=== PATIENT | female | born 1970 | race Hispanic/Latino ===

== ENCOUNTER 2017-06-19 13:58 | Emergency (ER) | payer MEDICAID ==
[2017-06-19 14:05] VITALS: BP 122/73
--- NOTE | 2017-06-19 15:20 | Emergency Department Report ---
ED Rash HPI - HPI Chief Complaint: Skin Rash Stated Complaint: ITCHING FOR OVER A MONTH Time Seen by Provider: 06/19/17 14:47 Duration: 1 month Location: Head, Neck, Chest, Back, Upper Extremities, Lower Extremities Rash Symptoms: Yes Itching, No Facial Swelling, No Tongue/Oral Swelling, No Breathing Difficulties, No Choking Sensation, No Wheezing/Dyspnea, No Peeling, No Blistering, No Fever, No Lightheaded, No Malaise, No Myalgias Severity: moderate Other History: 47-year-old female past medical history multiple surgeries presents with complaint of itchy rash on extremities chest back and neck for over 1 month. Patient states she has itchy rash with slightly reddish lesions in a slightly linear pattern on her extremities upper neck and back. 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 Denies fever chills nausea or vomiting. ED Review of Systems ROS: Stated complaint: ITCHING FOR OVER A MONTH Other details as noted in HPI Constitutional: denies: chills, fever Eyes: denies: eye pain, eye discharge, vision change ENT: denies: ear pain, throat pain Respiratory: denies: cough, shortness of breath, wheezing Cardiovascular: denies: chest pain, palpitations Endocrine: no symptoms reported Gastrointestinal: denies: abdominal pain, nausea, diarrhea Genitourinary: denies: urgency, dysuria, discharge Musculoskeletal: denies: back pain, joint swelling, arthralgia Skin: as per HPI, rash, pruritus. denies: lesions Neurological: denies: headache, weakness, paresthesias Psychiatric: denies: anxiety, depression Hematological/Lymphatic: denies: easy bleeding, easy bruising ED Past Medical Hx - Past Medical History Previous Medical History?: Yes Additional medical history: abdominal pain - Surgical History Past Surgical History?: Yes Hx Cholecystectomy: Yes Additional Surgical History: States over 25 surgeries. Galo abdominal surgeries. Small bowel obstruction 2, 2, hysterectomy, cholecystectomy - Social History Smoking Status: Current Every Day Smoker Substance Use Type: Alcohol - Medications Home Medications: Home Medications Medication Instructions Recorded Confirmed Last Taken Type Ondansetron [Zofran Odt] 4 mg PO Q4H PRN #14 tab.rapdis 08/10/15 Unknown Rx traMADol [Ultram 50 MG tab] 50 mg PO Q6HR PRN #14 tablet 08/10/15 Unknown Rx Diphenhydramine HCl/Zinc Acet 1 applicatio TP BID PRN #1 06/19/17 Unknown Rx [Benadryl Itch Stopping Crm] cream..g. Hydrocortisone 1 applicatio TP BID PRN #1 06/19/17 Unknown Rx cream..g. Permethrin 5% [Acticin 5% CREAM] 1 applicatio TP ONCE #1 tube 06/19/17 Unknown Rx Rash Exam - Exam General: Vital signs noted. No distress. Alert and acting appropriately. HEENT: No Periorbital Edema, No Conjuctival Injection, No Chemosis, No Perioral Edema, No Tongue Edema, No Uvular Edema, No Compromised Airway, No Drooling Lungs: Yes Good Air Exchange (Normal Breath Sounds), No Wheezes, No Ronchi, No Stridor, No Cough, No Labored Respirations, No Retractions, No Use of Accessory Muscles, No Other Abnormal Lung Sounds Heart: Yes Regular, No Murmur Skin: Yes Urticarial Rash, Yes Excoriations, No Maculopapular Rash, No Morbilliform rash, No Bulla(e), No Weeping, No Tenderness, No Erythema, No Edema , No Encrustations, No Other Other: Positive: Abdomen Normal, Neurologic Normal, Musculoskeletal Normal ED Course Vital Signs 06/19/17 14:02 Temperature 97.5 F L Pulse Rate 79 Respiratory 18 Rate Blood Pressure 122/73 O2 Sat by Pulse 97 Oximetry ED Medical Decision Making - Medical Decision Making A/P: Scabies rash 1-empiric treatment with permethrin 2-hydrocortisone and Benadryl cream topical when necessary 3-follow-up with primary care doctor Critical care attestation.: If time is entered above; I have spent that time in minutes in the direct care of this critically ill patient, excluding procedure time. ED Disposition Clinical Impression: Scabies, Rash Disposition: DC-01 TO HOME OR SELFCARE Is pt being admited?: No Does the pt Need Aspirin: No Condition: Stable Instructions: Scabies (ED), Acute Rash (ED), Itchy Skin (ED) Prescriptions: Diphenhydramine HCl/Zinc Acet [Benadryl Itch Stopping Crm] 1 applicatio TP BID PRN #1 cream..g. PRN Reason: Itching Hydrocortisone 1 applicatio TP BID PRN #1 cream..g. PRN Reason: Itching Permethrin 5% [Acticin 5% CREAM] 1 applicatio TP ONCE #1 tube Referrals: [facility] [Provider Group] - 3-5 Days [facility] [place] [Outside] - 3-5 Days Forms: Accompanied Note Time of Disposition: 15:19
== END 2017-06-19 15:35 | disposition home or self-care (01) ==
LOC: ED 13:58
DX: B86 Scabies (principal)
CPT/HCPCS: 99282

== ENCOUNTER 2018-09-05 17:43 | Emergency (ER) | payer MEDICAID ==
[2018-09-05 17:50] VITALS: BP 124/55
--- NOTE | 2018-09-05 17:50 | Emergency Department Report ---
Blank Doc - Documentation Documentation: trying to lift a calderón size mattress and sudden severe pain to lower back
[2018-09-05] MEDS ORDERED: PERCOCET 5/325 PO STA (17:51)
--- NOTE | 2018-09-05 20:27 | XRay Report ---
PROCEDURE: XR SPINE LUMBOSACRAL 2-3V TECHNIQUE: PROCEDURE: XR SPINE LUMBOSACRAL 2-3V HISTORY: lower back pain after lifting mattress COMPARISONS: None . FINDINGS: Alignment: Normal . Vertebral body heights/Disk spaces: Normal . Fracture(s): None . Facets: Normal . Bone mineralization: Normal . IMPRESSION: Normal Examination . This document is electronically signed by Neal Mcdaniels MD., September 05 2018 08:24:41 PM ET
[2018-09-05] MEDS ORDERED: TORADOL IM ONE (20:55)
[2018-09-05] MEDS ORDERED: DELTASONE PO ONE (20:56)
--- NOTE | 2018-09-05 21:19 | Emergency Department Report ---
HPI - General Chief Complaint: Back Pain/Injury Time Seen by Provider: 09/05/18 17:49 - HPI HPI: This is a 48-year-old female with no prior medical history who presents to ED complaining of lower back pain started today. Patient states she was lifting a a calderón size mattress. She accidentally strained her back. Patient states pain started shortly after lifting the clinic size mattress. She denies any fall or trauma to the back. ED Past Medical Hx - Past Medical History Previous Medical History?: No Additional medical history: abdominal pain - Surgical History Hx Cholecystectomy: Yes Additional Surgical History: States over 25 surgeries. Galo abdominal surgeries. Small bowel obstruction 2, 2, hysterectomy - Social History Smoking Status: Former Smoker Substance Use Type: None - Medications Home Medications: Home Medications Medication Instructions Recorded Confirmed Last Taken Type Ondansetron [Zofran Odt] 4 mg PO Q4H PRN #14 tab.rapdis 08/10/15 Unknown Rx Diphenhydramine HCl/Zinc Acet 1 applicatio TP BID PRN #1 06/19/17 Unknown Rx [Benadryl Itch Stopping Crm] cream..g. Hydrocortisone 1 applicatio TP BID PRN #1 06/19/17 Unknown Rx cream..g. Permethrin 5% [Acticin 5% CREAM] 1 applicatio TP ONCE #1 tube 06/19/17 Unknown Rx traMADol [Ultram 50 MG tab] 50 mg PO Q6HR PRN #12 tablet 05/12/18 Unknown Rx Ibuprofen [Motrin] 800 mg PO Q8HR #30 tablet 09/05/18 Unknown Rx traMADol [Ultram 50 MG tab] 50 mg PO Q6HR PRN #14 tablet 09/05/18 Unknown Rx ED Review of Systems ROS: Stated complaint: BACK PAIN Other details as noted in HPI Comment: All other systems reviewed and negative Physical Exam - Physical Exam Vital Signs: Vital Signs 09/05/18 09/05/18 09/05/18 17:46 17:47 19:20 Temperature 98.1 F Pulse Rate 87 Respiratory 18 16 Rate Blood Pressure 124/55 O2 Sat by Pulse 95 Oximetry 09/05/18 20:20 Temperature Pulse Rate Respiratory 16 Rate Blood Pressure O2 Sat by Pulse Oximetry Physical Exam: GENERAL: Alert and oriented x3, no apparent distress, Normal Gait, atraumatic. HEAD: Head is normocephalic and a-traumatic. BACK: Full range of motion, no spinal tenderness, tender to palpation of the latissimus dorsi muscles.. EXTREMITIES/MUSCULOSKELETAL: No cyanosis, clubbing, rash, lesions or edema. Full ROM bilaterally. LE Pulses 2+ bilaterally. LE 5+ strength bilaterally NEUROLOGIC: The patient is cooperative with no focal neurologic deficits. Cranial nerves II through XII are grossly intact. Normal speech. Normal sensation in bilateral upper and lower extremities, No loss of sensation, SKIN: Warm and dry, No lesions, No ulceration or induration present. ED Course Vital Signs 09/05/18 09/05/18 09/05/18 17:46 17:47 19:20 Temperature 98.1 F Pulse Rate 87 Respiratory 18 16 Rate Blood Pressure 124/55 O2 Sat by Pulse 95 Oximetry 09/05/18 20:20 Temperature Pulse Rate Respiratory 16 Rate Blood Pressure O2 Sat by Pulse Oximetry ED Medical Decision Making - Medical Decision Making 48-year-old female presents to ED with low back muscle strain ED course: Patient received Toradol and 1 tablet of Percocet in ED. Vital signs are normal patient is in no acute distress X-ray shows no abnormal findings, see report above. Discussed findings with the patient. Discussed with patient follow-up with primary care physician. Discussed the patient and take medications as prescribed. Patient has no neurological deficit. Patient is alert and oriented 3 and understands all instructions given. Critical care attestation.: If time is entered above; I have spent that time in minutes in the direct care of this critically ill patient, excluding procedure time. ED Disposition Clinical Impression: Strain of muscle, fascia and tendon of lower back, initial encounter Disposition: - TO HOME OR SELFCARE Is pt being admited?: No Does the pt Need Aspirin: No Condition: Stable Instructions: Muscle Strain (ED), Low Back Strain (ED), Heat Pack Application (ED) Additional Instructions: Make sure to follow up with the primary care physician as discussed. Take all your medications as you've been prescribed. If you have any worsening symptoms or develop new symptoms please return to ED immediately. Prescriptions: Ibuprofen [Motrin] 800 mg PO Q8HR #30 tablet traMADol [Ultram 50 MG tab] 50 mg PO Q6HR PRN #14 tablet PRN Reason: Pain Referrals: [facility] MD AYLIN [Primary Care Provider] - 3-5 Days Forms: Work/School Release Form(ED) Time of Disposition: 21:46
== END 2018-09-05 21:56 | disposition home or self-care (01) ==
LOC: ED 17:43
DX: S39.012A Strain of muscle, fascia and tendon of lower back, initial encounter (principal); Z90.49 Acquired absence of other specified parts of digestive tract; Z87.891 Personal history of nicotine dependence; X50.0XXA Overexertion from strenuous movement or load, initial encounter; Y93.89 Activity, other specified; Y92.89 Other specified places as the place of occurrence of the external cause; Y99.8 Other external cause status
CPT/HCPCS: 72100; 96372; 99283; J1885; J7512

== ENCOUNTER 2020-09-09 15:00 | Emergency (ER) | payer MEDICAID ==
[2020-09-09] MEDS ORDERED: CYCLOBENZAPRINE 10 MG TAB PO ONE (15:57)
[2020-09-09] MEDS ORDERED: IBUPROFEN 600 MG TAB PO ONE (15:57)
[2020-09-09 15:59] VITALS: BP 136/85
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
== END 2020-09-09 17:01 | disposition home or self-care (01) ==
LOC: ED 15:00
DX: M54.2 Cervicalgia (principal); R51.9 Headache, unspecified; F12.10 Cannabis abuse, uncomplicated; Z90.49 Acquired absence of other specified parts of digestive tract; Z87.891 Personal history of nicotine dependence; Z90.710 Acquired absence of both cervix and uterus; Z98.890 Other specified postprocedural states; Z79.1 Long term (current) use of non-steroidal anti-inflammatories (NSAID); Z79.899 Other long term (current) drug therapy; Z88.8 Allergy status to other drugs, medicaments and biological substances; V49.49XA Driver injured in collision with other motor vehicles in traffic accident, initial encounter; Y93.89 Activity, other specified; Y92.410 Unspecified street and highway as the place of occurrence of the external cause; Y99.8 Other external cause status
CPT/HCPCS: 72040

== ENCOUNTER 2021-03-22 19:34 | Emergency (ER) | payer MEDICAID | END 2021-03-23 04:46 | LOC: ED 19:34 | DX: Z04.1 Encounter for examination and observation following transport accident (principal); Z53.21 Procedure and treatment not carried out due to patient leaving prior to being seen by health care provider ==

== ENCOUNTER 2021-03-23 09:24 | Emergency (ER) | payer OTHER, MEDICAID ==
[2021-03-23 09:35] VITALS: BP 126/71
[2021-03-23] MEDS ORDERED: KETOROLAC 30 MG/1 ML INJ IM ONE (10:52)
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
== END 2021-03-23 12:07 | disposition home or self-care (01) ==
LOC: ED 09:24
DX: S16.1XXA Strain of muscle, fascia and tendon at neck level, initial encounter (principal); F12.90 Cannabis use, unspecified, uncomplicated; Z87.891 Personal history of nicotine dependence; Z90.49 Acquired absence of other specified parts of digestive tract; Z88.8 Allergy status to other drugs, medicaments and biological substances; Z91.048 Other nonmedicinal substance allergy status; Z79.899 Other long term (current) drug therapy; V89.2XXA Person injured in unspecified motor-vehicle accident, traffic, initial encounter; Y93.89 Activity, other specified; Y92.488 Other paved roadways as the place of occurrence of the external cause; Y99.8 Other external cause status
CPT/HCPCS: 96372; 99281; J1885